=== PATIENT | female | born 1955 | race Caucasian/White ===

== ENCOUNTER → 2016-10-16 | Outpatient (CLI) | payer BC ==
[~2016-10-16] MED LIST: ACHD5005 PO; ASPI-266 PO; ASPI-875 PO; CLNZ.5T; CYCL10TA45 PO; CYCL10TA9 PO; GABA-488 PO; HYDR-2890 PO; LISI5TAB14 PO; MAGN400C PO; METO-272 PO; METO200T6; METO25TA PO; OMEG-12 PO; OXYC1TAB12 PO; RAMI5CAP PO; RLX60T; SIMV40TA4 PO; TML5OP2.5 OU
--- NOTE | 2016-10-17 13:53 | Diagnostic Imaging Report ---
Bilateral screening mammogram. The current study was also evaluated with a Computer Aided Detection (CAD) system. INDICATION: Screening. No current complaints stated on the questionnaire. COMPARISON: 08/13/14. FINDINGS: The breasts are composed of heterogeneously dense parenchyma which may decrease mammographic sensitivity. There is no mass, architectural distortion or suspicious cluster of calcification. There is a pacemaker projecting into the left axillary region. Allowing for technique and positional differences, no suspicious change is seen. IMPRESSION: No significant change. ACR BI-RADS Category 2: Benign findings. Result letter will be mailed to the patient. Note: At least 10% of breast cancer is not imaged by mammography. Dictated by: Dictated on workstation # [id number]
== END ==
LOC: RAD 12:43
PROVIDERS: ATTEND Internal Medicine
DX: Z12.31 Encounter for screening mammogram for malignant neoplasm of breast (principal)
CPT/HCPCS: 77067

== ENCOUNTER → 2018-04-15 | Outpatient (CLI) | payer BC ==
--- NOTE | 2018-04-15 18:14 | Diagnostic Imaging Report ---
INDICATION: Routine screening. COMPARISON: Comparison is made with prior mammograms from 10/16/2016 and 08/13/2014. TECHNIQUE: 2D and 3D bilateral screening mammography was performed with computer-aided detection (CAD) system. FINDINGS: Both breasts are heterogeneously dense, limiting the sensitivity of mammography. Pacemaker battery pack in the left axilla is seen. No mass or malignant appearing microcalcifications are identified. The right axilla is unremarkable. IMPRESSION: No mammographic features suspicious for malignancy are identified. ACR BI-RADS Category 1: Negative. Result letter will be mailed to the patient. Note: At least 10% of breast cancer is not imaged by mammography. Dictated by: Dictated on workstation # [id number]
== END ==
LOC: RAD 12:32
PROVIDERS: ATTEND Internal Medicine
DX: Z12.31 Encounter for screening mammogram for malignant neoplasm of breast (principal)
CPT/HCPCS: 77067

== ENCOUNTER → 2018-07-28 | Outpatient (CLI) | payer BC | LOC: CARD 13:04 | PROVIDERS: ATTEND Internal Medicine Cardiovascular Disease | DX: I50.9 Heart failure, unspecified (principal); E78.2 Mixed hyperlipidemia; E03.9 Hypothyroidism, unspecified; I47.2 Ventricular tachycardia; I08.1 Rheumatic disorders of both mitral and tricuspid valves | CPT/HCPCS: 93306 ==

== ENCOUNTER → 2019-05-25 | Outpatient (CLI) | payer BC, MEDICARE | LOC: CARD 14:21 | PROVIDERS: ATTEND Internal Medicine Cardiovascular Disease | DX: I08.1 Rheumatic disorders of both mitral and tricuspid valves (principal); I50.9 Heart failure, unspecified; E03.9 Hypothyroidism, unspecified; E78.2 Mixed hyperlipidemia | CPT/HCPCS: 93306 ==

== ENCOUNTER 2019-07-08 07:17 | Day surgery (SDC) | payer BC ==
[2019-07-08] VITALS (11 sets, daily range): BP systolic 110–135; BP diastolic 55–77
[~2019-07-08] VITALS: Ht 167 cm; Wt 76.0 kg
[2019-07-08] MEDS ORDERED: NS IV 1000 ML 1,000 ML ONE (07:24)
[2019-07-08] MEDS ORDERED: LIDOCAINE 2% VISCOUS 15 ML UDC ONE (07:24)
[2019-07-08] MEDS ORDERED: NS IV 1000 ML 1,000 ML IV ONE (07:31)
[2019-07-08] MEDS ORDERED: LIDOCAINE 2% VISCOUS 15 ML UDC PO ONE (07:45)
[2019-07-08] MEDS ORDERED: MIDAZOLAM 5 MG/5 ML (VERSED) VIAL IV ONE (07:45)
[2019-07-08 07:50] LABS: HEMOGLOBIN 13.8 G/DL (11.5-16.0); MEAN PLATELET VOLUME 10.3 FL (7.4-10.4); RED CELL DISTRIBUTION WIDTH 12.4 % (10.0-14.5); WHITE BLOOD COUNT 4.4 10^3/uL (4.3-11.0)
[2019-07-08] MEDS ORDERED: fentaNYL INJECTION 100 MCG/2 ML AMP ONE (07:55)
[2019-07-08] MEDS ORDERED: MIDAZOLAM 5 MG/5 ML (VERSED) VIAL ONE (07:55)
[2019-07-08] MEDS ORDERED: MAGN400T7 PO (08:03)
[2019-07-08] MEDS ORDERED: BIMA2.5D4 OU (08:03)
[2019-07-08] MEDS ORDERED: METO50TA7 PO (08:03)
[2019-07-08] MEDS ORDERED: SIMV40TA25 PO (08:03)
[2019-07-08] MEDS ORDERED: LISI-556 PO (08:03)
[2019-07-08] MEDS ORDERED: ASPI-983 PO (08:04)
[2019-07-08 08:10] LABS: INR 0.9 (0.8-1.4); PROTHROMBIN TIME PATIENT 12.5 SEC (12.2-14.7)
[2019-07-08 08:16] LABS: ALANINE AMINOTRANSFERASE 21 U/L (0-55); ALBUMIN 4.3 GM/DL (3.2-4.5); ALKALINE PHOSPHATASE 98 U/L (40-136); BILIRUBIN,TOTAL 0.5 MG/DL (0.1-1.0); BUN/CREATININE RATIO 18; CALCIUM 9.3 MG/DL (8.5-10.1); CARBON DIOXIDE 25 MMOL/L (21-32); CHLORIDE 108 MMOL/L (98-107); CHOLESTEROL 158 MG/DL (< 200); CREATININE SERUM 0.76 MG/DL (0.60-1.30); GFR ESTIMATED > 60; GLUCOSE 106 MG/DL (70-105); HDL CHOLESTEROL 40 MG/DL (40-60); POTASSIUM 4.2 MMOL/L (3.6-5.0); SODIUM 141 MMOL/L (135-145); TOTAL PROTEIN 6.9 GM/DL (6.4-8.2); TRIGLYCERIDES 102 MG/DL (<150); VLDL CHOLESTEROL 20 MG/DL (5-40)
[2019-07-08] MEDS ORDERED: TIMO5DRO5 OU (08:22)
[2019-07-08] MEDS ORDERED: TRM50T PO (08:24)
--- NOTE | 2019-07-08 09:00 | Diagnostic Imaging Report ---
CLINICAL INDICATION: Pre-MERLINE. Patient states no chest complaints. EXAM: Portable chest x-ray, upright view. COMPARISON: Chest x-ray dated 08/05/2006. FINDINGS: Lungs/pleura: The lungs are clear. There is no pneumothorax. There is no pleural effusion. Mediastinum: Unremarkable. Pulmonary vasculature: Unremarkable. Heart: The heart size is within normal limits. There is interval placement of a cardiac pacemaker/AICD overlying the left chest. Bones/extrathoracic soft tissue: Again seen is left curvature of the thoracolumbar spine. IMPRESSION: 1. There is no radiographic evidence of acute cardiopulmonary process. 2. Interval placement of a cardiac pacemaker/AICD overlying the left chest in good position. Dictated by: Dictated on workstation # [id number]
--- NOTE | 2019-07-08 09:33 | NUR ---
SPOKE WITH THE PT WELL CALLING [facility] TO COMPLETE THE MED REC. THE PT WAS ABLE TO TELL ME HOW/WHEN SHE TAKES EACH MEDICATION. THE FOLLOWING FILL DATES ARE FROM [facility]: 02-05-2019 TRAMADOL 50MG #100/USES PRN 04-30-2019 METOPROLOL SUCC 50MG #90/90DS 05-15-2019 LISINOPRIL 5MG #90/90DS 07-01-2019 LATANOPROST #/DS 07-01-2019 TIMOLOL #06/27 DS 07-04-2019 SIMVASTATIN 40MG #90/90DS OTC MEDS" ASPIRIN MAG-OXIDE
[2019-07-08] MEDS: fentaNYL INJECTION 100 MCG/2 ML AMP IV ONE (09:40)
--- NOTE | 2019-07-08 09:55 | Discharge Inst-Post CATH ---
Discharge Inst-CATH/EP Problems Reviewed?: Yes Post Cardiac Cath/EP D/C Inst Follow Up/Plan Appointment with Dr Burdick in 2-4 weeks <b>CARDIAC CATH/EP PROCEDURE DISCHARGE INSTRUCTIONS</b> ACTIVITY * Go Home directly and rest. * Limit activity of the leg (or wrist if it was used) for 7 days including aerobics, swimming, jogging, bicycling, etc. * Restrict stair-climbing for 7 days if possible, if not, climb up with your non-cath leg, then bring together on the same step. * Avoid lifting, pushing, pulling or excessive movement of the affected extremity for 7 days. * Customary sexual activity may be resumed after 2 days-use caution not to use a position that strains or causes pain to the affected extremity. * No driving for 24 hours. * NO SMOKING. * Avoid straining for bowel movements for 7 days. * Gentle walking on level ground is allowed. * Returning to work will depend on the type of procedure and the results. Your doctor will discuss this with you. CALL YOUR DOCTOR FOR ANY OF THE FOLLOWING: *If bleeding from the puncture site occurs- Apply gentle pressure to site with clean cloth and call your doctor or EMS. * If a knot or lump forms under the skin, increases in size, or causes pain. * If bruising appears to be worsening or moving further down your leg instead of disappearing. * Temperature above 101 F. CARE OF YOUR GROIN INCISION; * Bruising or purple discoloration of the skin near the puncture site is common. * You may shower only, no bathtub bathing for 5 days. Be careful to avoid slipping as your leg may feel stiff. * If a closure device was used on your femoral artery, please see the attached guide regarding care of the device and your leg. * Leave dressing on FOR 24 hours. CARE OF YOUR WRIST INCISION; * Bruising or purple discoloration of the skin near the puncture site is common. * You may shower. * DO NOT submerge wrist. * Leave dressing on FOR 24 hours. NATASHA BURDICK MD Jul 08, 2019 09:55
--- NOTE | 2019-07-08 09:56 | Cardiac Procedure Note-CS/ASA ---
Pre-Procedure Note Pre-Op Procedure Note H&P Reviewed The H&P was reviewed, patient examined and no changes noted. Date H&P Reviewed: Jul 08, 2019 Time H&P Reviewed: 09:00 Conscious Sedation Pre-Proced Time 09:00 ASA Score 3 For ASA 3 and 4: Consider anesthesia and medical clearance. Also, for patients with a history of failed moderate sedation consider anesthesia. Airway Lungs Heart ASA score ASA 1: a normal healthy patient ASA 2: a patient with a mild systemic disease (mid diabetes, controlled hypertension, obesity x ASA 3: a patient with a severe systemic disease that limits activity (angina, COPD, prior Myocardial infarction) ASA 4: a patient with an incapacitating disease that is a constant threat to life (CHF, renal failure) ASA 5: a moribund patient not expected to survive 24 hrs. (ruptured aneurysm) ASA 6: a declared brain- patient whose organs are being harvested. For emergent operations, add the letter E after the classification Mallampati Classification Grade 3 Sedation Plan Analgesia, Amnesia, Plan communicated to team members, Discussed options with patient/fam, Discussed risks with patient/fam The patient is an appropriate candidate to undergo the planned procedure, sedation, and anesthesia. The patient immediately re-assessed prior to indication. NATASHA MONTAÑO MD Jul 08, 2019 09:56
== END 2019-07-08 12:06 | disposition home or self-care (01) ==
LOC: CATH 07:17
PROVIDERS: ATTEND Internal Medicine Cardiovascular Disease
DX: I47.2 Ventricular tachycardia (principal); I34.0 Nonrheumatic mitral (valve) insufficiency; E78.2 Mixed hyperlipidemia; E03.9 Hypothyroidism, unspecified; I50.9 Heart failure, unspecified; Z80.9 Family history of malignant neoplasm, unspecified; Z79.82 Long term (current) use of aspirin
CPT/HCPCS: 36415; 71045; 80053; 80061; 85027; 85610; 85730; 87081; 93312; 93320; 93325

== ENCOUNTER → 2019-07-17 | Outpatient (CLI) | payer BC ==
[~2019-07-17] MED LIST changes: +ASPI-983 PO; +BIMA2.5D4 OU; +LISI-556 PO; +MAGN400T7 PO; +METO50TA7 PO; +RT-ALBUTEROL SULF 2.5 MG/3 ML PRE-MIX VIAL INH ONE; +RT-ALBUTEROL SULF 2.5 MG/3 ML PRE-MIX VIAL ONE; +SIMV40TA25 PO; +TIMO5DRO5 OU; +TRM50T PO
== END ==
LOC: RT 14:31
PROVIDERS: ATTEND Thoracic Surgery (Cardiothoracic Vascular Surgery)
DX: I34.0 Nonrheumatic mitral (valve) insufficiency (principal)
CPT/HCPCS: 94060; 94726; 94729

== ENCOUNTER 2019-07-29 06:50 | Day surgery (SDC) | payer BC ==
[~2019-07-29] VITALS: Ht 167 cm; Wt 76.0 kg
[2019-07-29] VITALS (11 sets, daily range): BP systolic 95–126; BP diastolic 55–77
[~2019-07-29 06:50] MED LIST changes: -RT-ALBUTEROL SULF 2.5 MG/3 ML PRE-MIX VIAL INH ONE; -RT-ALBUTEROL SULF 2.5 MG/3 ML PRE-MIX VIAL ONE
[2019-07-29] MEDS ORDERED: NS IV 1000 ML 1,000 ML ONE (06:52)
[2019-07-29] MEDS ORDERED: LIDOCAINE 1% INJ 20 ML 20 ML VIAL ONE (06:52)
[2019-07-29] MEDS ORDERED: HEParin (CATH LAB) 2,000 ML IV ONE (06:52)
[2019-07-29] MEDS ORDERED: NS IV 1000 ML 1,000 ML IV SCH ×2 (07:00→10:07)
[2019-07-29 07:27] LABS: BILIRUBIN,URINE NEGATIVE (NEGATIVE); CLARITY,URINE CLEAR; COLOR,URINE YELLOW; GLUCOSE, URINE (UA) NEGATIVE (NEGATIVE); KETONES,URINE NEGATIVE (NEGATIVE); LEUKOCYTE ESTERASE ,URINE 1+ (NEGATIVE); NITRITE,URINE NEGATIVE (NEGATIVE); PROTEIN,URINE TRACE (NEGATIVE)
[2019-07-29 07:29] LABS: HEMOGLOBIN 13.6 G/DL (11.5-16.0); MEAN PLATELET VOLUME 10.3 FL (7.4-10.4); RED CELL DISTRIBUTION WIDTH 12.5 % (10.0-14.5); WHITE BLOOD COUNT 4.3 10^3/uL (4.3-11.0)
[2019-07-29] MEDS ORDERED: DORZ10DR8 OP (07:31)
[2019-07-29 07:38] LABS: BACTERIA,URINE TRACE /HPF
[2019-07-29 07:46] LABS: ALANINE AMINOTRANSFERASE 18 U/L (0-55); ALBUMIN 4.1 GM/DL (3.2-4.5); ALKALINE PHOSPHATASE 104 U/L (40-136); BILIRUBIN,TOTAL 0.5 MG/DL (0.1-1.0); BUN/CREATININE RATIO 17; CALCIUM 9.1 MG/DL (8.5-10.1); CARBON DIOXIDE 24 MMOL/L (21-32); CHLORIDE 109 MMOL/L (98-107); CHOLESTEROL 140 MG/DL (< 200); CREATININE SERUM 0.77 MG/DL (0.60-1.30); GFR ESTIMATED > 60; GLUCOSE 95 MG/DL (70-105); HDL CHOLESTEROL 40 MG/DL (40-60); POTASSIUM 4.1 MMOL/L (3.6-5.0); SODIUM 142 MMOL/L (135-145); TOTAL PROTEIN 6.7 GM/DL (6.4-8.2); TRIGLYCERIDES 68 MG/DL (<150); VLDL CHOLESTEROL 14 MG/DL (5-40)
[2019-07-29 08:16] LABS: INR 0.9 (0.8-1.4); PROTHROMBIN TIME PATIENT 12.8 SEC (12.2-14.7)
[2019-07-29] MEDS ORDERED: MIDAZOLAM 5 MG/5 ML (VERSED) VIAL ONE (08:44)
[2019-07-29] MEDS ORDERED: fentaNYL INJECTION 100 MCG/2 ML AMP ONE (08:44)
--- NOTE | 2019-07-29 10:07 | Cardiac Procedure Note-CS/ASA ---
Pre-Procedure Note Pre-Op Procedure Note H&P Reviewed The H&P was reviewed, patient examined and no changes noted. Date H&P Reviewed: Jul 29, 2019 Time H&P Reviewed: 10:07 Conscious Sedation Pre-Proced Time 10:07 ASA Score 3 For ASA 3 and 4: Consider anesthesia and medical clearance. Also, for patients with a history of failed moderate sedation consider anesthesia. Airway Lungs Heart ASA score ASA 1: a normal healthy patient ASA 2: a patient with a mild systemic disease (mid diabetes, controlled hypertension, obesity x ASA 3: a patient with a severe systemic disease that limits activity (angina, COPD, prior Myocardial infarction) ASA 4: a patient with an incapacitating disease that is a constant threat to life (CHF, renal failure) ASA 5: a moribund patient not expected to survive 24 hrs. (ruptured aneurysm) ASA 6: a declared brain- patient whose organs are being harvested. For emergent operations, add the letter E after the classification Mallampati Classification Grade 3 Sedation Plan Analgesia, Amnesia, Plan communicated to team members, Discussed options with patient/fam, Discussed risks with patient/fam The patient is an appropriate candidate to undergo the planned procedure, sedation, and anesthesia. The patient immediately re-assessed prior to indication. NATASHA MONTAÑO MD Jul 29, 2019 10:07
--- NOTE | 2019-07-29 10:10 | Discharge Inst-Post CATH ---
Discharge Inst-CATH/EP Problems Reviewed?: Yes Post Cardiac Cath/EP D/C Inst Follow Up/Plan Appointment with Dr. MONTAÑO's office in 4 weeks <b>CARDIAC CATH/EP PROCEDURE DISCHARGE INSTRUCTIONS</b> ACTIVITY * Go Home directly and rest. * Limit activity of the leg (or wrist if it was used) for 7 days including aerobics, swimming, jogging, bicycling, etc. * Restrict stair-climbing for 7 days if possible, if not, climb up with your non-cath leg, then bring together on the same step. * Avoid lifting, pushing, pulling or excessive movement of the affected extremity for 7 days. * Customary sexual activity may be resumed after 2 days-use caution not to use a position that strains or causes pain to the affected extremity. * No driving for 24 hours. * NO SMOKING. * Avoid straining for bowel movements for 7 days. * Gentle walking on level ground is allowed. * Returning to work will depend on the type of procedure and the results. Your doctor will discuss this with you. CALL YOUR DOCTOR FOR ANY OF THE FOLLOWING: *If bleeding from the puncture site occurs- Apply gentle pressure to site with clean cloth and call your doctor or EMS. * If a knot or lump forms under the skin, increases in size, or causes pain. * If bruising appears to be worsening or moving further down your leg instead of disappearing. * Temperature above 101 F. CARE OF YOUR GROIN INCISION; * Bruising or purple discoloration of the skin near the puncture site is common. * You may shower only, no bathtub bathing for 5 days. Be careful to avoid slipping as your leg may feel stiff. * If a closure device was used on your femoral artery, please see the attached guide regarding care of the device and your leg. * Leave dressing on FOR 24 hours. CARE OF YOUR WRIST INCISION; * Bruising or purple discoloration of the skin near the puncture site is common. * You may shower. * DO NOT submerge wrist. * Leave dressing on FOR 24 hours. NATASHA MONTAÑO MD Jul 29, 2019 10:10
[2019-07-29] MEDS ORDERED: PATIENT MAY USE OWN MEDS, ALL PO SCH (10:15)
--- NOTE | 2019-07-29 10:16 | Cardiac Cath Report ---
Cardiac Cath Report Physician (s)/Dba (s) Physician NATASHA MONTAÑO MD Pre-Procedure Diagnosis Pre-Procedure Diagnosis: Severe mitral regurgitation Post-Procedure Note Procedure Start Date: Jul 29, 2019 Name of Procedure: Complete heart catheterization Left ventriculogram Aortic arch angiogram Findings/Procedure Note PROCEDURE NOTE: 64-year-old lady with history of mitral regurgitation, mitral valve prolapse, history of ventricular tachycardia, has an ICD, she was referred for evaluation for possible mitral valve replacement or repair, referred back for cardiac catheterization. After explaining the procedure to the patient, all pros and cons were explained, all questions were answered. The patient signed the consent and then she was placed on the cardiac catheterization laboratory. Groin was prepped SL fashion local anesthesia was used. Sheath placed in the right femoral vein, [place] catheter was advanced to the wedge position pressure was measured at multiple steps cardiac output by thermodilution and Dagoberto was done then another sheath was placed in the right femoral artery. Erik right and left catheter were used to access the coronary system. Pigtail was used to access the left ventricular cavity. Left ventriculogram was done Aortic arch angiogram was done At the end of the procedure the sheath was removed. Closure device was used FINDINGS: Hemodynamics LV 115/13, end-diastolic pressure of 13 Aorta 112/64 mean of 82 PA 27/15 mean of 33 Pulmonary capillary wedge pressure mean of 9, V wave 13 RV 33/9, end-diastolic pressure of 9 RA 7 Oxygen saturation F a 92.4, RV 69.4, are a 70.4, PA 68.5, HRA 70.1 Cardiac output by thermodilution 3.67, cardiac index 1.98 Cardiac output by Dagoberto 3.83, cardiac index 2.07 ANATOMY: Left Main is free of obstructive disease Left Anterior Descending has mild disease nonobstructive disease Left Circumflex has mild disease nonobstructive disease Right Coronory Artery has mild disease nonobstructive disease LV Gram was done showing normal left ventricular size with normal contracted 50, estimated ejection fraction 55 percent, did not see significant mitral regurgitation although it is not a very accurate way of evaluating the mitral regurgitation Aorta evaluation showed hypertensive changes in the thoracic aorta, no dissection or aneurysm, normal innominate artery, left carotid and left subclavian arteries CONCLUSION: 1. Mild coronary artery disease nonobstructive disease 2. Normal left ventricular size and systolic function estimated ejection fraction 60 percent 3. Normal aortic arch and great vessels of the neck 4. Hemodynamics described below DISCUSSION AND RECOMMENDATION: medical therapy, referred for evaluation with CT surgery Anesthesia Type: Conscious Sedation Estimated blood loss (mL): 25 ml Contrast Amount: 69 ml Total Radiation Dose: 273 mGy Post-Procedure Diagnosis Post-operative diagnosis: Severe mitral regurgitation Coronary artery disease Ventricular tachycardia Hypertension NATASHA MONTAÑO MD Jul 29, 2019 10:15
== END 2019-07-29 14:40 | disposition home or self-care (01) ==
LOC: CATH 06:50 → SDC 10:38 → CATH 14:40
PROVIDERS: ATTEND Internal Medicine Cardiovascular Disease
DX: I34.0 Nonrheumatic mitral (valve) insufficiency (principal); I25.10 Atherosclerotic heart disease of native coronary artery without angina pectoris; I11.0 Hypertensive heart disease with heart failure; I50.9 Heart failure, unspecified; I65.23 Occlusion and stenosis of bilateral carotid arteries; I47.2 Ventricular tachycardia; I34.1 Nonrheumatic mitral (valve) prolapse; E78.2 Mixed hyperlipidemia; E03.9 Hypothyroidism, unspecified; Z79.899 Other long term (current) drug therapy; Z79.82 Long term (current) use of aspirin; Z88.5 Allergy status to narcotic agent; Z80.9 Family history of malignant neoplasm, unspecified
CPT/HCPCS: 36221; 36415; 80053; 80061; 81000; 85027; 85610; 85730; 87081; 87088; 93460

== ENCOUNTER → 2020-02-09 | Outpatient (CLI) | payer MEDICARE, OTHER ==
[~2020-02-09] MED LIST changes: +ASPI-1238 PO; -ASPI-983 PO; +DORZ10DR8 OP
== END ==
LOC: CARD 08:34
PROVIDERS: ATTEND Physician Assistant
DX: E78.2 Mixed hyperlipidemia (principal); I50.9 Heart failure, unspecified; I47.2 Ventricular tachycardia; I08.1 Rheumatic disorders of both mitral and tricuspid valves
CPT/HCPCS: 93306

== ENCOUNTER → 2021-01-10 | Outpatient (CLI) | payer MEDICARE, OTHER ==
[~2021-01-10] MED LIST changes: -LISI-556 PO; +LISI-729 PO
--- NOTE | 2021-01-10 14:21 | Diagnostic Imaging Report ---
INDICATION: Routine screening. COMPARISON: 04/15/2018 and 10/16/2016. TECHNIQUE: 2D and 3D bilateral screening mammography was performed with CAD. FINDINGS: Both breasts are heterogeneously dense, limiting the sensitivity of mammography. There has been development of an area of increased density and associated architectural distortion in the upper and outer aspect of the right breast. Additional views are recommended. No malignant-appearing microcalcifications are seen. There is a pacemaker battery pack in the left axilla. IMPRESSION: Development of an area of increased density and architectural distortion in the upper outer aspect of the right breast at mid depth. Additional views are recommended for further evaluation. ACR BI-RADS Category 0: Incomplete. (Needs additional imaging evaluation). Result letter will be mailed to the patient. Note: At least 10% of breast cancer is not imaged by mammography. Dictated by: Dictated on workstation # [id number]
== END ==
LOC: RAD 10:00
PROVIDERS: ATTEND Internal Medicine
DX: Z12.31 Encounter for screening mammogram for malignant neoplasm of breast (principal)
CPT/HCPCS: 77063; 77067

== ENCOUNTER → 2021-01-10 | Outpatient (CLI) | payer MEDICARE, OTHER | LOC: CARD 08:57 | PROVIDERS: ATTEND Physician Assistant | DX: I11.9 Hypertensive heart disease without heart failure (principal); I25.10 Atherosclerotic heart disease of native coronary artery without angina pectoris; I34.0 Nonrheumatic mitral (valve) insufficiency; I34.8 Other nonrheumatic mitral valve disorders; Z95.0 Presence of cardiac pacemaker | CPT/HCPCS: 93306 ==

== ENCOUNTER → 2021-01-23 | Outpatient (CLI) | payer MEDICARE, OTHER ==
--- NOTE | 2021-01-23 16:54 | Diagnostic Imaging Report ---
INDICATION: Right breast density and architectural distortion. COMPARISON: Correlation is made with the diagnostic mammogram from earlier this same day and a screening mammogram from 01/10/2021. FINDINGS: Sonographic interrogation of the outer right breast does show an area of parenchymal heterogeneity with mixed increased and decreased echogenicity at the 9:30 location. This correlates to the scar on the patient's skin at the site of prior drain placement from recent heart surgery. This area measures approximately 15 mm x 7 mm x 8 mm. No internal vascularity is seen. IMPRESSION: Mixed echogenicity at the 9:30 location just deep to the area of scarring from the patient's prior drain placement. This also correlates to the area of architectural distortion noted mammographically. This may represent scar tissue. Even so, close interval followup is recommended. A repeat right mammogram and right breast ultrasound in 6 months is recommended to ensure stability. ACR BI-RADS Category 3: Probably benign findings. Dictated by: Dictated on workstation # [id number]
== END ==
LOC: RAD 13:15
PROVIDERS: ATTEND Internal Medicine
DX: R92.2 Inconclusive mammogram (principal)
CPT/HCPCS: 76642; 77065; G0279

== ENCOUNTER 2021-03-07 11:29 | Emergency (ER) | payer MEDICARE, OTHER ==
[~2021-03-07] VITALS: Ht 66 cm; Wt 77.6 kg
[2021-03-07 11:35] VITALS: BP 167/89
--- NOTE | 2021-03-07 11:43 | ED Upper Extremity ---
General Chief Complaint: Upper Extremity Stated Complaint: R WRIST/ARM PAIN FELL Source: patient Exam Limitations: no limitations History of Present Illness Date Seen by Provider: Mar 07, 2021 Time Seen by Provider: 11:38 Initial Comments Patient is a 66-year-old female who presents to the emergency department with a chief complaint of right wrist pain and deformity. Patient states she was running from a wasp when she tripped and fell backwards onto an outstretched arm. Complains of minimal pain as long as the arm is still. 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 Is left-hand dominant. No history of previous injury to the right wrist. No other complaints of recent illness or injury. Is Covid vaccinated. Cardiac history followed by Dr. Burdick, defibrillator in place. No allergies to medications. All other review of systems reviewed and negative except as stated. Onset: just prior to arrival Severity: mild Pain/Injury Location: right wrist Method of Injury: fell Modifying Factors: Improves With Immobilization; Worse With Movement Allergies and Home Medications Allergies Coded Allergies: Oxycodone (Unverified Allergy, Unknown, 08/04/13) Patient Home Medication List Home Medication List Reviewed: Yes Aspirin (Aspirin EC) 81 Mg Tablet., 81 MG PO HS, (Reported) Entered as Reported by: GARRETT REID on 07/08/19 0804 Bimatoprost (Lumigan) 2.5 Ml Drops, 1 DROP OU HS, (Reported) Entered as Reported by: GARRETT REID on 07/08/19 08 Dorzolamide HCl/Timolol Maleat (Dorzolamide-Timolol Eye Drops) 10 Ml Drops, 1 ML OP BID, (Reported) Entered as Reported by: ELIZABETH CHICAS on 07/29/19 0731 Lisinopril (Lisinopril) 5 Mg Tablet, 5 MG PO HS, (Reported) Entered as Reported by: GARRETT REID on 07/08/19 08 Magnesium Oxide (Magnesium Oxide) 400 Mg Tablet, 400 MG PO HS, (Reported) Entered as Reported by: GARRETT ERID on 07/08/19 08 Metoprolol Succinate (Metoprolol Succinate) 50 Mg Tab.er.24h, 50 MG PO HS, (Reported) Entered as Reported by: GARRETT REID on 07/08/19 0803 Simvastatin (Simvastatin) 40 Mg Tablet, 40 MG PO HS, (Reported) Entered as Reported by: GARRETT REID on 07/08/19 08 Timolol Maleate (Timolol Maleate 0.5%) 5 Ml Drops, 1 DROP OU BID, (Reported) Entered as Reported by: GARRETT REID on 07/08/19 08 Tramadol HCl (Tramadol HCl) 50 Mg Tablet, 50 MG PO HS PRN for PAIN-MODERATE (5- 7), (Reported) Entered as Reported by: GARRETT REID on 07/08/19 0824 Review of Systems Constitutional: see HPI EENTM: no symptoms reported Respiratory: no symptoms reported Cardiovascular: no symptoms reported Gastrointestinal: no symptoms reported Genitourinary: no symptoms reported Musculoskeletal: joint pain (right wrist) Skin: no symptoms reported All Other Systems Reviewed Negative Unless Noted: Yes Past Njnmngz-Tpvund-Youeha Hx Immunizations Up To Date Tetanus Booster (TDap): Unknown Past Medical History Respiratory: No Cardiac: Yes (CARDIAC ARREST 2006, PACEMAKER) Neurological: No Reproductive Disorders: No Genitourinary: No Gastrointestinal: No Degenerate Disk Disease Cancer: Yes Skin Did You Recieve Any Treatments: No Blood Disorders: No Adverse Reaction/Blood Tranf: Yes Family Medical History Cancer 09 SISTER (THYROID ) Family history: Diabetes mellitus 03 FATHER Family history: Hypertension 03 FATHER Physical Exam Vital Signs Vital Signs - First Documented 03/07/21 11:35 Temp 37.1 Pulse 81 Resp 18 B/P (MAP) 167/89 (115) Pulse Ox 96 O2 Delivery Room Air Capillary Refill : Height, Weight, BMI Height: 5'6.00" Weight: 155lbs. 0.9oz. [id number]; 27.25 BMI Method:Stated General Appearance: WD/WN, no apparent distress HEENT: PERRL/EOMI Cardiovascular: regular rate, rhythm Respiratory: lungs clear, normal breath sounds, no respiratory distress, no accessory muscle use Gastrointestinal: normal bowel sounds, non tender, soft Shoulder: normal inspection, non-tender, no evidence of injury, normal ROM Elbow/Forearm: normal inspection, non-tender, no evidence of injury, normal ROM, Right Wrist: Yes deformity (mild), Yes limited ROM, Yes pain, Yes soft tissue tenderness, Yes swelling Hand: normal inspection, non-tender, no evidence of injury, normal ROM, Right Neurologic/Psychiatric: alert, normal mood/affect, oriented x 3 Skin: normal color, warm/dry Progress/Results/Core Measures Results/Orders My Orders Orders - XU DONALD MD Wrist, Right, 3 Views Or More (03/07/21 11:42) Vital Signs/I&O 03/07/21 11:35 Temp 37.1 Pulse 81 Resp 18 B/P (MAP) 167/89 (115) Pulse Ox 96 O2 Delivery Room Air Progress Progress Note : Time: 12:54 Progress Note discussed with Dr Mccormick, will follow up tomorrow. agreeable with noy. Diagnostic Imaging Diagonstic Imaging: Xray Comments [facility], [place] NAME: CAMILA MALAVE [facility] REC#: [id number] PT STATUS: REG ER : 1955 PHYSICIAN: XU DONALD MD ADMIT DATE: 03/07/21/ER Signed Date of Exam:03/07/21 WRIST, RIGHT, 3 VIEWS OR MORE INDICATION: Trauma, fall on outstretched hand. COMPARISON: None available. TECHNIQUE: 3 views of the right wrist are obtained. FINDINGS: There is an acute, mildly impacted and comminuted fracture distal radius. This has intra-articular extension into the radiocarpal joint. The radial articular surface has approximately 20 degrees of dorsal angulation. The tip of the ulnar styloid is also fractured and displaced. Moderate soft tissue swelling. IMPRESSION: Acute, mildly comminuted fracture distal radius has intra-articular extension and dorsal angulation. Dictated by: Dictated on workstation # [id number] Dict: 03/07/21 1216 Trans: 03/07/21 1228 [facility] [id number] Interpreted by: KYLE SARAH MD Electronically signed by: KYLE SARHA MD 03/07/21 1228 Departure Communication (Admissions) Time/Spoke to Consulting Phy: 12:[address] Mccormick; will see in clinic likely tomorrow Impression Primary Impression: Fracture of radius and ulna Qualified Codes: S52.91XA - Unspecified fracture of right forearm, initial encounter for closed fracture; S52.201A - Unspecified fracture of shaft of right ulna, initial encounter for closed fracture Disposition: HOME, SELF-CARE Condition: Stable Departure-Patient Inst. Decision time for Depature: 12:48 Referrals: NEW LOPEZ MD (PCP/Family) Primary Care Physician GLORIA MCCORMICK MD Patient Instructions: Wrist Fracture (DC) Add. Discharge Instructions: Please keep the splint on and in place until you follow-up with Dr. Mccormick. Tramadol 1 every 6 hours as needed for pain. You can alternate with either Tylenol or ibuprofen. Keep it iced and elevated until you follow-up in clinic. Scripts Tramadol HCl (Tramadol HCl) 50 Mg Tablet 50 MG PO Q6H PRN for PAIN, #20 TAB 0 Refills Prov: XU DONALD MD 03/07/21 XU DONALD MD Mar 07, 2021 11:43
--- NOTE | 2021-03-07 12:21 | Diagnostic Imaging Report ---
INDICATION: Trauma, fall on outstretched hand. COMPARISON: None available. TECHNIQUE: 3 views of the right wrist are obtained. FINDINGS: There is an acute, mildly impacted and comminuted fracture distal radius. This has intra-articular extension into the radiocarpal joint. The radial articular surface has approximately 20 degrees of dorsal angulation. The tip of the ulnar styloid is also fractured and displaced. Moderate soft tissue swelling. IMPRESSION: Acute, mildly comminuted fracture distal radius has intra-articular extension and dorsal angulation. Dictated by: Dictated on workstation # [id number]
[2021-03-07] MEDS ORDERED: TRM50T PO (12:52)
== END 2021-03-07 13:20 | disposition home or self-care (01) ==
LOC: EDUNIT# 11:29 → ER 11:30
DX: S52.571A Other intraarticular fracture of lower end of right radius, initial encounter for closed fracture (principal); S52.611A Displaced fracture of right ulna styloid process, initial encounter for closed fracture; Z79.82 Long term (current) use of aspirin; W01.0XXA Fall on same level from slipping, tripping and stumbling without subsequent striking against object, initial encounter
CPT/HCPCS: 29125; 73110; 99284; A4565

== ENCOUNTER → 2022-01-23 | Outpatient (CLI) | payer MEDICARE, OTHER ==
[~2022-01-23] MED LIST changes: -LISI-729 PO; +LISI5TAB20 PO
--- NOTE | 2022-01-23 12:53 | Diagnostic Imaging Report ---
INDICATION: Routine screening. COMPARISON: 01/10/2021 and 10/16/2016. TECHNIQUE: 2D and 3D bilateral screening mammography was performed with CAD. FINDINGS: Both breasts are heterogeneously dense, limiting the sensitivity of mammography. The architectural distortion in the upper right breast laterally appears to be stable in appearance. No discrete mass or malignant-appearing microcalcifications are seen. A Pacemaker battery pack is located in the left axilla. The right axilla is unremarkable. IMPRESSION: No mammographic features suspicious for malignancy are identified. ACR BI-RADS Category 2: Benign findings. Result letter will be mailed to the patient. Note: At least 10% of breast cancer is not imaged by mammography. Dictated by: Dictated on workstation # [id number]
== END ==
LOC: RAD 08:01
PROVIDERS: ATTEND Internal Medicine
DX: Z12.31 Encounter for screening mammogram for malignant neoplasm of breast (principal)
CPT/HCPCS: 77063; 77067

== ENCOUNTER → 2022-06-18 | Outpatient (CLI) | payer MEDICARE, OTHER | LOC: CARD 13:51 | PROVIDERS: ATTEND Internal Medicine Cardiovascular Disease | DX: I25.10 Atherosclerotic heart disease of native coronary artery without angina pectoris (principal); I11.9 Hypertensive heart disease without heart failure | CPT/HCPCS: 93306 ==

== ENCOUNTER 2022-10-10 08:38 | Outpatient (CLI) | payer MEDICARE, OTHER ==
[~2022-10-10] VITALS: Ht 167.6 cm; Wt 78.9 kg
[~2022-10-10 08:38] MED LIST changes: +DORZ10DR36 OP; -DORZ10DR8 OP; +TIMO5DRO16 OU; -TIMO5DRO5 OU
[2022-10-11] MEDS ORDERED: LACTATED RINGERS 1,000 ML IV STA (08:22)
== END 2022-10-11 08:26 | disposition home or self-care (01) ==
LOC: PREOP 08:38
PROVIDERS: ATTEND Internal Medicine
DX: Z01.818 Encounter for other preprocedural examination (principal)

== ENCOUNTER 2022-10-12 07:32 | Day surgery (SDC) | payer MEDICARE, OTHER ==
--- NOTE | 2022-10-10 08:59 | HISTORY AND PHYSICAL ---
COLONOSCOPY HISTORY AND PHYSICAL HISTORY OF PRESENT ILLNESS: The patient is a 67-year-old white female who was seen in the office for followup of history of mitral valve prolapse with severe insufficiency requiring mitral valve repair. She has undergone one other screening colonoscopy 12 years ago that was unremarkable. She is deemed to be of average risk because she is not aware of any family history for colon cancer. Denies bowel habit changes noted, has noted no melena or bright red blood per rectum and denies abdominal pain. She has had no chest pain or palpitation. Energy level has been good. She does report some sleep maintenance related insomnia, waking up in the middle of the night, having difficulty going back to sleep due to some stressful thought patterns. She does not drink alcohol, does not smoke, avoids caffeine after noon. PHYSICAL EXAMINATION: GENERAL: Reveals a white female, appeared to be in no acute distress. VITAL SIGNS: Blood pressure 130/80, weight up 1.9 pounds, 174.5. HEENT: Unremarkable. Sclerae nonicteric. CHEST: Clear to auscultation. CARDIOVASCULAR: Reveals a regular rate and rhythm without murmur, S3, or S4. ABDOMEN: Soft, supple without mass, organomegaly or tenderness. EXTREMITIES: Revealed no cyanosis, clubbing or edema. ASSESSMENT AND PLAN: Sleep maintenance insomnia. Discussed the importance of regular physical activity. She can try melatonin. Advised leaving the bedroom if she is not able to fall asleep within 30 minutes. We will see her back in 6 months. Prep instructions for colonoscopy were given and questions were answered. We did review blood work from June of this year, revealing a normal chemistry panel, and normal lipid panel. Job ID: [id number] DocumentID: [id number] Dictated Date: 09/17/2022 13:35:57 Dress Marker Date: 09/17/2022 14:11:00 Dictated By: NEW LOPEZ MD
[~2022-10-12] VITALS: Ht 167.6 cm; Wt 78.9 kg
[2022-10-12] MEDS ORDERED: LACTATED RINGERS 1,000 ML IV STA (07:37)
[2022-10-12 07:53] VITALS: BP 115/63
--- NOTE | 2022-10-12 08:01 | Pre-Op Note & Conscious Sedat ---
Pre-Operative Progress Note Date H&P Reviewed: October 12, 2022 Time H&P Reviewed: 08:00 History & Physical: H&P Reviewed, Patient Examed, No changes noted Pre-Op Diagnosis: screening Moderate Sedation PreProcedure ASA Score 2 Airway Lungs Heart ASA score ASA 1: a normal healthy patient ASA 2: a patient with a mild systemic disease (mid diabetes, controlled hypertension, obesity ASA 3: a patient with a severe systemic disease that limits activity (angina, COPD, prior Myocardial infarction) ASA 4: a patient with an incapacitating disease that is a constant threat to life (CHF, renal failure) ASA 5: a moribund patient not expected to survive 24 hrs. (ruptured aneurysm) ASA 6: a declared brain- patient whose organs are being harvested. For emergent operations, add the letter E after the classification Mallampati Classification Grade 1 Sedation Plan Analgesia, Amnesia, Plan communicated to team members, Discussed options with patient/fam, Discussed risks with patient/fam The patient is an appropriate candidate to undergo the planned procedure, sedation, and anesthesia. The patient immediately re-assessed prior to indication. NEW LOPEZ MD October 12, 2022 08:01
[2022-10-12] MEDS ORDERED: MIDAZOLAM 2 MG/2 ML (VERSED) VIAL ONE (08:37)
[2022-10-12] MEDS ORDERED: PROPOFOL INJECTION 50 ML IV ONE (08:37)
[2022-10-12] MEDS ORDERED: RT-ALBUTEROL SULF 2.5 MG/3 ML PRE-MIX VIAL ONE ×2 (09:18→09:20)
--- NOTE | 2022-10-12 09:22 | Progress Note-Post Operative ---
Post-Procedure Note Physician (s)/Shagger (s) Physician NEW LOPEZ MD Pre-Procedure Diagnosis Pre-Procedure Diagnosis: screening Post-Procedure Diagnosis Post-operative diagnosis: Prior to undergoing colonoscopy digital rectal evaluation was performed. Anal Sphincter tone was normal and the perianal reflexes intact. No abnormalities noted on digital inspection of the anal canal or distal rectal vault. the colonoscope was then inserted into the rectum and under direct visualization the scope was advanced to the cecum. The cecum was identified by identification of the ileocecal valve cecal strap and appendiceal orifice. Photographic documentation was obtained. Quality the prep was good. Findings there are no evidence for internal or external hemorrhoids and the rectum was unremarkable. Moderate diverticular disease confined to the sigmoid colon was present without evidence of diverticulitis. The descending colon and splenic flexure transverse colon and hepatic flexure were unremarkable. Present in the mid ascending colon was a 3 mm sessile polyp was photographed and biopsied and ablated with minimal blood loss estimated 1 cc. The cecum of the colon was unremarkable. A/P 1. Moderate diverticular disease confined to the sigmoid colon was present without evidence of diverticulitis. 2. 1 3 mm sessile polyp was removed via hot forceps from the proximal to mid ascending colon with no significant blood loss. Advocate consideration for repeat screening colonoscopy in 10 years. NEW LOPEZ MD October 12, 2022 09:22
[2022-10-12 09:33] VITALS: BP 128/80
[2022-10-12 09:40] VITALS: BP 136/82
--- NOTE | 2022-10-12 09:55 | Diagnostic Imaging Report ---
INDICATION: RULE OUT ASPIRATION. TECHNIQUE: Single view chest 9:27 AM. CORRELATION STUDY: 07/08/2019 FINDINGS: Left-sided pacemaker. Mitral valve ring. Heart size and mediastinum are generally stable with vascular slightly increased from prior. Minimal basilar atelectasis. There is a questionable rounded nodular opacity right lung apex, approximately 14 mm. IMPRESSION: 1. Borderline vasculature. 2. Question small right apical lung nodule. Not present on prior. Consideration for CT chest would be recommended. Dictated by: Dictated on workstation # [id number]
[2022-10-12] MEDS ORDERED: FUROSEMIDE 40 MG/4 ML INJ (LASIX) IVP ONE (10:00)
[2022-10-12] MEDS ORDERED: fentaNYL INJ 100 MCG/2 ML AMP ONE (10:56)
[2022-10-12] MEDS ORDERED: fentaNYL INJ 100 MCG/2 ML AMP IVP PRN (11:00)
[2022-10-12 12:05] VITALS: BP 125/82
== END 2022-10-12 12:18 | disposition home or self-care (01) ==
LOC: ENDO 07:32
PROVIDERS: ATTEND Internal Medicine
DX: Z12.11 Encounter for screening for malignant neoplasm of colon (principal); K57.30 Diverticulosis of large intestine without perforation or abscess without bleeding; D12.2 Benign neoplasm of ascending colon; G47.09 Other insomnia
CPT/HCPCS: 71045; 88305; 94640; 94760

== ENCOUNTER → 2022-10-22 | Outpatient (CLI) | payer MEDICARE, OTHER ==
--- NOTE | 2022-10-22 13:39 | Diagnostic Imaging Report ---
INDICATION: Post colonoscopy with suspicion for aspiration. The lungs are clear. There is no failure, effusion or pneumothorax. The cardiac support devices stable. No infiltrate, effusion or pneumothorax. IMPRESSION: Unremarkable frontal chest. Dictated by: Dictated on workstation # [id number]
== END ==
LOC: RAD 09:26
PROVIDERS: ATTEND Internal Medicine
DX: R91.8 Other nonspecific abnormal finding of lung field (principal)
CPT/HCPCS: 71046

== ENCOUNTER → 2023-03-14 | Outpatient (CLI) | payer MEDICARE, OTHER ==
--- NOTE | 2023-03-14 16:53 | Diagnostic Imaging Report ---
3-D bilateral screening mammogram. 2-D and 3-D bilateral screening mammography was performed with CAD. COMPARISON: This study was compared to the prior exams of 01/23/2022, 01/10/2021 and 04/15/2018. There are no current complaints. The fibroglandular tissue in both breasts is heterogeneously dense. This does limit the sensitivity of this exam. The architectural distortion of the upper outer aspect of the right breast seen on the previous studies is again evident and no different. There is no primary or secondary sign of malignancy noted. The left-sided pacemaker battery pack noted on the prior exam is also again visualized and unchanged. IMPRESSION: There is no evidence of malignancy. ACR BI-RADS Category 1: Negative. Result letter will be mailed to the patient. Note: At least 10% of breast cancer is not imaged by mammography. Dictated by: Dictated on workstation # [id number]
== END ==
LOC: RAD 09:13
PROVIDERS: ATTEND Internal Medicine
DX: Z12.31 Encounter for screening mammogram for malignant neoplasm of breast (principal)
CPT/HCPCS: 77063; 77067